=== PATIENT | male | born 1975 | race African-American/Black ===

== ENCOUNTER 2021-05-20 15:12 | Emergency (ER) | payer MEDICAID ==
[~2021-05-20] VITALS: Ht 185.4 cm; Wt 88.0 kg
[2021-05-20 15:50] VITALS: BP 142/75
[2021-05-20] MEDS ORDERED: CIPR-263 MT (16:16)
[2021-05-20] MEDS ORDERED: CIPHCO RIGHT EAR (16:16)
== END 2021-05-20 17:44 | disposition home or self-care (01) ==
LOC: ER 15:12
DX: H60.91 Unspecified otitis externa, right ear (principal)
CPT/HCPCS: 99281

== ENCOUNTER 2021-05-24 08:11 | Emergency (ER) | payer MEDICAID ==
[~2021-05-24] VITALS: Ht 185.4 cm; Wt 87.0 kg
[~2021-05-24 08:11] MED LIST: CIPHCO RIGHT EAR; CIPR-263 MT
[2021-05-24 09:25] VITALS: BP 127/75
== END 2021-05-24 09:26 | disposition home or self-care (01) ==
LOC: ER 08:22
DX: H60.90 Unspecified otitis externa, unspecified ear (principal)
CPT/HCPCS: 99283